=== PATIENT | female | born 1990 | race Caucasian/White ===

== ENCOUNTER → 2021-04-22 07:15 | Outpatient (CLI) | payer OTHER, SELFPAY ==
--- NOTE | ~2021-04-22 | XR_ITS ---
XR ankle LT min 3V DATE: 04/22/2021 07:39 INDICATION: Left ankle injury TECHNIQUE: 4 views COMPARISON: None FINDINGS: There is prominent plantar and mild posterior calcaneal enthesopathy, without any associate d erosive change or periostitis. No fracture or dislocation of the ankle or disruption of the ankle mortise. No periosteal reaction or bone destruction. IMPRESSION: Plantar and posterior calcaneal enthesopathy Reviewed, dictated and finalized at location B. VISION OPERATOR
== END ==
PROVIDERS: PCP Family Medicine; Visit Provider Family Medicine
DX: M77.32 Calcaneal spur, left foot (principal); S99.912A Unspecified injury of left ankle, initial encounter
CPT/HCPCS: 73610

== ENCOUNTER 2021-06-13 07:41 | Outpatient (CLI) | payer OTHER, SELFPAY ==
[2021-06-13 08:03] LABS: Anion Gap 9 mmol/L (8-16); Blood Urea Nitrogen 13 mg/dL (7-17); Calcium 9.1 mg/dL (8.4-10.2); Carbon Dioxide 25 mmol/L (22-30); Chloride 104 mmol/L (98-107); Estimated Glomerular Filt Rate > 60; Glucose 112 mg/dL (65-110); Sodium 138 mmol/L (137-145)
[2021-06-13 08:27] LABS: Vitamin D 25 Hydroxy 24.9 ng/mL
== END 2021-06-13 07:42 | disposition home or self-care (01) ==
PROVIDERS: PCP Family Medicine; Visit Provider Nurse Practitioner Family
DX: R53.83 Other fatigue (principal); L65.9 Nonscarring hair loss, unspecified; F32.A Depression, unspecified; E55.9 Vitamin D deficiency, unspecified
CPT/HCPCS: 36415; 80048; 82306; 84436; 84443

== ENCOUNTER → 2022-04-29 12:16 | Outpatient (CLI) | payer OTHER, SELFPAY ==
--- NOTE | ~2022-04-29 | XR_ITS ---
Left wrist Technique: PA, oblique, lateral, and ulnar deviation views were obtained. Clinical History: Injury Findings: No acute fracture or dislocation is seen. Osseous alignment is anatomic. Joint spaces are p reserved. Soft tissues are unremarkable. Impression: Unremarkable left wrist radiographs. Reviewed, dictated and finalized at location . H RN Impression: Unremarkable left wrist radiographs.
== END ==
PROVIDERS: PCP Nurse Practitioner Family; Visit Provider Nurse Practitioner Family
DX: S69.92XA Unspecified injury of left wrist, hand and finger(s), initial encounter (principal); T14.90XA Injury, unspecified, initial encounter
CPT/HCPCS: 73110

== ENCOUNTER 2024-10-22 12:59 | Emergency (ER) | payer OTHER, SELFPAY ==
--- NOTE | ~2024-10-22 | XR_ITS ---
Left ankle Technique: AP, oblique, and lateral views were obtained. Clinical History: Pain Findings: No acute fracture or dislocation is seen. Osseous alignment is anatomic. Ankle mortise and other visualized joint spaces are preserved. Soft tissues are otherwise unremarkable. Impression: Unremarkable left ankle. Reviewed, dictated and finalized at location . Impression: Unremarkable left ankle.
[2024-10-22 13:18] VITALS: BP 131/82; PULSE 65; RESP 16; TEMP 36.7; O2SAT 99
--- NOTE | 2024-10-22 13:42 | ED_ITS ---
HPI - Extremity Injury (Lower) General Chief Complaint: Extremity Injury, Lower Stated Complaint: Fall Injury/Left Leg and Ankle Time Seen by Provider: 10/22/24 13:43 Source: patient Mode of arrival: ambulatory Limitations: no limitations History of Present Illness HPI Narrative: 34-year-old female presented for complaint of left ankle pain and swelling following injury yesterday. She states she stepped off of a porch, rolled the ankle when she landed on uneven concrete. Says she felt a pop and the pain was so severe she felt dizzy. Since then she has been able to bear weight has not taken anything for pain. The pain has increased throughout today. Denies deformity, bruising, numbness or tingling. Related Data Home Medications ?Medication ?Instructions ?Recorded ?Confirmed ?Last Taken ?Type No Home Medications 10/22/24 10/22/24 Unknown History Allergies Allergy/AdvReac Type Severity Reaction Status Date / Time Latex, Natural Rubber AdvReac Intermediate Rash Verified 10/22/24 13:15 Review of Systems Review of Systems: CONSTITUTIONAL: Denies body aches, fever, chills EYES: Denies visual changes ENT: Denies rhinorrhea, congestion CARDIOVASCULAR: Denies chest pain, palpitations, or edema. RESPIRATORY: Denies cough or dyspnea. SKIN: Denies rash, itching, or wounds. MUSCULOSKELETAL: reports Left ankle pain and swelling NEUROLOGIC: Denies headache, numbness, tingling, or weakness. All systems reviewed & are unremarkable except as noted in HPI and below PMFSH Past Medical History Medical History Adult BMI 39.0-39.9 kg/sq m BMI greater than 40 COVID Surgical History Surgical History History of wisdom tooth extraction (~08/2016) Family History Family History (Updated 06/04/22 @ 11:09 by [place] Lau) Mother Depression Father Hypertension Alcohol abuse Grandparent Breast cancer paternal grandmother Heart disease maternal grandfather Malignant tumor of stomach paternal grandfather Grandparent Lung cancer paternal grandfather Pancreatic cancer paternal grandmother Sibling Depression Other Breast cancer paternal aunts x2 Social History Social History (Updated 06/04/22 @ 11:14 [facility] Smoking status: Former smoker Tobacco type: cigarettes Second hand tobacco smoke exposure: Yes Alcohol intake: never Substance use: never Substance use type: does not use Lack of Transportation: No Lack of Food: Never True Current Housing: I Have Housing Concerned About Future Housing: No Difficulty Paying Gas/Electric Bills: No Difficulty Paying for Meds: No Currently Unemployed: No Education: High School Diploma/GED Difficulty w/ Childcare or Family Care: No Living arrangements: with family Additional living arrangements comments: Lives with her . Occupation/Education: occupation Additional occupation/education comments: [employer] [facility] Gender identity (if verbalized by the patient): Female Sexual Orientation (if Verbalized by the Patient): Lesbian, Kitchen, or Homosexual Spiritual care concerns: No Agree to blood products: Yes Comments At time of signature, I have reviewed and agree with nursing past medical, surgical, social and family history unless otherwise noted. Please see nursing chart for further information. There is no relevant family history pertinent to the presenting complaint Exam Narrative: GENERAL: Well-appearing CHEST: Speaks in full sentences. No respiratory distress. HEART: Regular rate and rhythm. Normal and equal peripheral pulses. EXTREMITIES: Left lateral ankle with mild swelling. slightly decreased range of motion with extension and external rotation due to pain with movement. Foot has normal strength and sensation, No ecchymosis, No point tenderness. No open woun ds, or obvious deformity; pulse palpable and equal bilaterally, skin warm, dry, pink. Capillary refill less than 3 seconds. SKIN: Warm, dry, no rash. NEURO: Alert and oriented x3. PSYCH: Normal mood and affect Course Course Emergency Course: Patient is aware of diagnosis, understands and agrees to treatment plan. Anticipatory guidance given. Patient agrees to follow-up as directed and is aware of reasons to seek care at the emergency department. Portions of this record may have been created with voice recognition software Level of Care: Express Care Visit Vital Signs Vital signs: Vital Signs Temperature 98.1 F 10/22/24 13:18 Pulse Rate 65 10/22/24 13:18 Respiratory Rate 16 10/22/24 13:18 Blood Pressure 131/82 10/22/24 13:18 Pulse Oximetry 99 10/22/24 13:18 Oxygen Delivery Room Air 10/22/24 13:18 Temperature 98.1 F 10/22/24 13:18 Pulse Rate 65 10/22/24 13:18 Respiratory Rate 16 10/22/24 13:18 Blood Pressure 131/82 10/22/24 13:18 Pulse Oximetry 99 10/22/24 13:18 Oxygen Delivery Room Air 10/22/24 13:18 Reviewed MDM - Extremity Injury (Lower) MDM Narrative Medical decision making narrative: Discussed physical exam findings and xray. LIVE applied. Advised supportive measures and signs/symptoms to go to the ER. Pt is appropriate for outpt treatment and f/u. Differential Diagnosis Differential diagnosis: Likely ankle sprain and strain and ankle fracture Imaging Data Radiologist's impression: Patient: Shonda Puckett : 1990 MR#: [id number] Age: 34 Acct:[id number] Loc: [facility] ADM Date: 10/22/24Attending Dr: Left ankle Technique: AP, oblique, and lateral views were obtained. Clinical History: Pain Findings: No acute fracture or dislocation is seen. Osseous alignment is anatomic. Ankle mortise and other visualized joint spaces are preserved. Soft tissues are otherwise unremarkable. Impression: Unremarkable left ankle. Discharge Plan Discharge Clinical Impression: Ankle sprain and strain Patient Disposition: Home Condition: Stable Instructions: Ankle Sprain (ED) Additional Instructions: Rest and elevate the left leg; bear weight as tolerated. No excessive walking or running until symptoms are fully resolved Apply ice 15-20 minute intervals several times a day Keep it wrapped with LIVE or use a soft ankle splint Motrin 800mg every 8 hours, alternate with Tylenol 1000mg every 8 hours as n eeded Follow up with your primary care provider as needed in 1 week Go to the ER for worsening symptoms or concerns Patient Language: Amharic Prescriptions: No Action No Home Medications Follow-up/Referrals: PHYSICIAN,JEWEL FLAT SURFACER [Primary Care Provider] - Time of Disposition: 14:03
== END 2024-10-22 14:12 | disposition home or self-care (01) ==
PROVIDERS: Emergency Provider Nurse Practitioner Family
DX: S93.402A Sprain of unspecified ligament of left ankle, initial encounter (principal); S96.912A Strain of unspecified muscle and tendon at ankle and foot level, left foot, initial encounter; X50.0XXA Overexertion from strenuous movement or load, initial encounter; Z86.16 Personal history of COVID-19; Z87.891 Personal history of nicotine dependence
CPT/HCPCS: 73610; 99213; G0463

== ENCOUNTER 2024-11-09 05:36 | Emergency (ER) | payer OTHER, SELFPAY ==
--- NOTE | ~2024-11-09 | CT_ITS ---
CT of the Abdomen and Pelvis: Indication: Abdominal pain Technique: 2.5 mm axial scans were obtained through the abdomen and pelvis following intravenous adm inistration of 100 cc of Omnipaque 350. Dose reduction technique was used on this scan by utilizing a utomated exposure control and iterative reconstruction technique. The dose-length product (DLP) was 1 181.54 mGy-cm. Findings: Scans through the lung bases are unremarkable. There is diffuse hepatic steatosis. The spleen, pancreas, gallbladder, adrenals and left kidney are w ithin normal limits. There is a 3 mm right UVJ stone with mild right hydroureteronephrosis. No eviden ce of aortic aneurysm. No lymphadenopathy. No bowel obstruction or bowel wall thickening. There is no evidence to suggest acute appendicitis. Images through the pelvis were performed. Urinary bladder otherwise unremarkable. No pelvic mass evid ent. No ascites. Bilateral L5 pars interarticularis defects are present. Impression: 3 mm right UVJ stone, with mild right hydroureteronephrosis. Diffuse hepatic steatosis. Reviewed, dictated and finalized at location . Impression: 3 mm right UVJ stone, with mild right hydroureteronephrosis. Diffuse hepatic steatosis.
--- OUTSIDE RECORDS SUMMARY | 2024-11-09 05:38 | XMS_ITS | Clinical Summary ---
Author Organization [facility] Address [address] [phone] Phone Care Team Providers Care Starch Dumper Name Role Phone Soraya Brantleyelle [facility] Primary Care Pro vider Allergies No known active allergies Medications No known medications Active Problems Problem Noted Date Diagnosed Date Pulsatile tinnitus 01/12/2023 Immunizations Immunization Administration Dates Next Due Varicella Vaccine Live 03/06/1999 Family History Medical History Relation Name Comments Heart Attack Father Anxiety disorder Mother Depression Mother Relation Name Status Comments Father Mother Alive Social History Tobacco Use Types Packs/Day Years Used Date Smoking Tobacco: Former Cigarettes Smokeless Tobacco: Never Tobacco Cessation:Counseling Given: No Alcohol Use Standard Drinks/Week Comments Yes 0 (1 standard drink = 0.6 oz pur e alcohol) Comments No Sex and Gender Information Value Date Recorded Sex Assigned at Not on file Legal Sex 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:33 PM BOOTH OPERATOR Gender Identity Not on file Sexual Orientation Not on file Last Filed Vital Signs Vital Sign Reading Time Taken Comments Blood Pressure 116/84 01/12/2023 4:07 PM CDT Pulse 89 01/12/2023 4:07 PM CDT Temperature 36.6 C (97.8 F) 01/12/2023 4:07 PM CDT Respiratory Rate 12 01/12/2023 4:07 PM CDT Oxygen Saturation 98% 01/12/2023 4:07 PM CDT Inhaled Oxygen Concentration - - Weight 113.9 kg (251 lb) 01/12/2023 4:07 PM CDT Height 163.8 cm (5' 4.5) 01/12/2023 4:07 PM CDT Body Mass Index 42.42 01/12/2023 4:07 PM CDT Plan of Treatment Health Maintenance Due Date Last Done Comments Hepatitis C Virus (HCV) Screening 1990 Human Papillomavirus (HPV) Immunization (1 - 3-dose series) 09/13/2007 Hepatitis B Immunization (1 of 3 - 19+ 3-dose series) 09/13/2011 Pap Smear 2013 Cervical Cancer Screening (CCS) 2022 HPV/Cotest 2022 SARS-COV-2 Immunization ( season) 2024 05/09/2021, 05/28/2020, 05/07/2020 Influenza Immunization (#1) 01/01/202504/02, 02/15/2015 Respiratory Syncytial Virus (RSV) Immunization (Adult) (1 - 1-dose 75+ series) 09/13/2067 DTaP/Tdap/Td Immunization Discontinued 07/24/2015 TdaP Immunization Completed 07/24/2015 Meningococcal Immunization (ACWY) Aged Out No longer eligible based on patient's age to complete this topic Pneumococcal Immunization Combined Aged Out No longer eligible based on patient's age to complete this topic Rotavirus Immunization Aged Out No lo nger eligible based on patient's age to complete this topic Insurance CIG Care Teams Starch Dumper Relationship Specialty Start Date End Date Soraya Brantley PAC [address] [place] [address] PCP - General Physician Threader 01/12/23
--- OUTSIDE RECORDS SUMMARY | 2024-11-09 05:38 | XMS_ITS | Clinical Summary ---
Author Organization [facility] Virtual Care Address [address] [place] [phone] Phone Care Team Providers Care Golf Course Keeper Name Role Phone Unknown, Notinfile Primary Care Provider Unavail able Allergies No known active allergies Medications methylPREDNISol one (Medrol, Jayant,) 4 mg DosepackIndicat ions:Acute effusion of both middle ears follow package directions 1 packet 3 Active fluconazole (DIFLUCAN) 150 mg tabletIndicatio ns:Antibiotic-i nduced yeast infection Take one tab now. Repeat in 7 days if symptoms persist. 2 tablet 3 Active Active Problems No known active problems Social History Tobacco Use Types Packs/Day Years Used Date Smoking Tobacco: Former Cigarettes Personal Safety Answer Date Recorded Getting School Help Needed Not on file 07/17 Comments Unknown Sex and Gender Information Value Date Recorded Sex Assigned at Not on file Legal Sex Female 8:45 AM CDT Gender Identity Female 12/07/2022 4:32 PM CDT Sexual Orientation Lesbian 12/07/2022 4: 32 PM CDT Obstetrics History Last Filed Vital Signs Vital Sign Reading Time Taken Comments Blood Pressure 106/70 12/07/2022 6:06 PM CDT Pulse 80 12/07/2022 6:06 PM CDT Temperature 36.5 C (97.7 F) 12/07/2022 6:06 PM CDT Respiratory Rate 18 12/07/2022 6:06 PM CDT Oxygen Saturation 97% 12/07/2022 6:06 PM CDT Inhaled Oxygen Concentration - - Weight 110.7 kg (244 lb) 12/07/2022 6:06 PM CDT Height 162.6 cm (5' 4) 12/07/2022 6:06 PM CDT Body Mass Index 41.88 12/07/2022 6:06 PM CDT Plan of Treatment Health Maintenance Due Date Last Done Comments Cervical Cancer Screening 1992 Depression Screening 1992 Hepatitis C Screening 1990 Varicella Vaccines (2 of 2 - 2-dose childhood series) 05/29/1999 03/06/1999 DTaP/Tdap/Td Vaccine (1 - Tdap) 09/13/2003 Hepatitis B Screening 2010 Regular Well Visit/Exam 18-64 2010 Covid-19 Vaccine (4 - 2023-2 5 season) 2024 05/09/2021, 05/28/2020, 05/07/2020 Influenza Vaccine (Season Ended) 2025 HPV Vaccines Aged Out No longer eligi ble based on patient's age to complete this topic Pneumococcal vaccine <65 Aged Out No longer eligible based on patient's age to complete this topic Insurance JESSICA ALLEGIANCE Care Teams Golf Course Keeper Relationship Specialty Start Date End Date Unknown, Notinfile PCP - General 11/15/22
--- OUTSIDE RECORDS SUMMARY | 2024-11-09 05:38 | XMS_ITS | Referral Summary ---
Author Organization [facility] Virtual Care Address [address] [place] [phone] Phone Care Team Providers Care Industrial Services Worker Name Role Phone Unknown, Notinfile Primary Care [...] Orientation Lesbian 12/07/2022 4: 32 PM CDT Last Filed Vital Signs Vital Sign Reading [...] 12/07/2022 6:06 PM CDT Plan of Treatment Not on file Insurance JESSICA ALLEGIANCE Care Teams Industrial Services Worker Relationship Specialty Start Date End Date Unknown, Notinfile PCP - General 11/15/22
--- OUTSIDE RECORDS SUMMARY | 2024-11-09 05:39 | XMS_ITS | Data Portability ---
Author Organization [facility] Address [address] [place] [address] Care Team Providers Care Creative Engagement Director Name Role Phone NAOMIE VALDIVIA Primary Care Provider Assessment Encounter Date Assessment Date Assessment LastModified by Organization Details LastModified Time 04/12/2018 04/12/[address] Spear-fabi sultana pt see ENT Not available 04/13/2018 09:19:12 Plan of Treatment Reminders Order Date Submit Date Provider Last Modified By Organization Details Last Modified Time Details Appointments None recorded. Lab DONNIE (antinucle ar antibodies ) screen, serum 2017 018 VENICE CISNEROS, Monico florin Emigd[address], [address] [address], [place], [address], 8 13:11:42 CMP, serum or plasma 2016 017 VENICE CISNEROS, Monico florin Emigdio, [facility] [address], [place], [address], 7 17:10:51 thyroid panel, serum 2016 017 VENICE [facility]ISNEROS, [facility], [address], [place], [address], 7 17:10:52 CBC 2016 017 [facility], [facility], [facility] [address], [place], [address], 7 17:10:51 lipid panel, serum - need LP-IR? insulin resistance 2016 017 VENICE [facility], [address], [address], [place], [address], 7 17:10:52 Referral ENT referral 2017 018 [facility], [address] [facility], [address], [place], [address], 9 09:46:14 Procedures None recorded. Surgeries None recorded. Imaging None recorded. Medication Orders Chantix Starting Month Box 0.5 mg (11)-1 mg (42) tablets in dose pack 2018 019 [facility] #[id number], [address] [place], [place], [id number], 9 15:37:54 phentermin e 37.5 mg capsule [address] [facility] #[id number], [address], [place], [id number], 9 09:18:34 phentermin e 37.5 mg capsule 2016 017 [facility][id number], [address], [place], [id number], 8 15:41:32 phentermin e 37.5 mg capsule 2016 017 [facility] #[id number], [address], [place], [id number], 8 15:41:32 Patient TargetsNo targets recorded. Patient Instructions Encounter Date Encounter Id Patient Instructions Last Modified By Organization Details Last Modified Time 08/04/2016 [id number] breast pain: car e instructions knealma Not available 08/04/2016 16:20:55 RTC in 3 weeks. mpass Not available 08/04/2016 16:19:27 Shonda has decaffinated. She also stopped eating sugar and has lost 30#. She will RTC in 3 weeks for a breast follow-up. If she has the same tenderness, will send her for a breast US. mpass Not available 08/04/2016 16:19:17 07/28/2018 [id number] deciding about using medicines to quit smoking Not available 07/28/2018 15:37:48 Quitting Tobacco : Care Instructions Not available 07/28/2018 15:37:48 When You Want to Lose Weight: Care Instructions Not available 07/28/2018 15:37:48 body mass index: care instructions Not available 07/28/2018 16:25:21 learning about healthy weight Not available 07/28/2018 16:25:21 Reason for Referral ENT Referral for Cervical ly mphadenopathy Referring Physician: Naomie Valdivia, Family Medicine, Encounter Date: 04/12/2018 Results Created Date Observation Date Name Description Value Unit Range Abnormal Flag Note LastModifiedBy Organization Detail LastModifiedTime 08/07/19 17 08/07/2016 CBC WBC 11.7 x10e3 /uL 3.4-10 .8 above high normal Not Available [facility] ([facility]) [address] [place], [address], 08/07/2016 17:10:51 08/07/19 17 08/07/2016 CBC RBC 4.56 x10e6 /uL 3.77-5 .28 Not Available [facility] ([facility]) [address] [facility], [place], [address], 08/07/2016 17:10:51 08/07/19 17 08/07/2016 CBC hemoglobin 13.3 g/dL 11.1-1 5.9 Not Available [facility] ([facility]) [address] [place], [address], 08/07/2016 17:10:51 08/07/19 17 08/07/2016 CBC hematocrit 40.6 % 34.0-4 6.6 Not Available [facility] ([facility]) [address] [facility], [place], [address], 08/07/2016 17:10:51 08/07/19 17 08/07/2016 CBC MCV 89 fL 79-97 Not Available [facility] ([facility]) [address] [facility], [place], [address], 08/07/2016 17:10:51 08/07/19 17 08/07/2016 CBC MCH 29.2 pg 26.6-3 3.0 Not Available [facility] ([facility]) [address] [facility], [place], [address], 08/07/2016 17:10:51 08/07/19 17 08/07/2016 CBC MCHC 32.8 g/dL 31.5-3 5.7 Not Available [facility] ([facility]) [address] [facility], [place], [address], 08/07/2016 17:10:51 08/07/19 17 08/07/2016 CBC RDW 13.3 % 12.3-1 5.4 Not Available [facility] ([facility]) [address] [facility], [place], [address], 08/07/2016 17:10:51 08/07/19 17 08/07/2016 CBC platelets 297 x10e3 /uL 150-37 9 Not Available [facility] ([facility]) [address] [facility], [place], [address], 08/07/2016 17:10:51 08/07/19 17 08/07/2016 CBC neutrophils 57 % Not Avai lable [facility] ([facility]) [address] [facility], [place], [address], 08/07/2016 17:10:51 08/07/19 17 08/07/2016 CBC lymphs 35 % Not Available [facility] ([facility]) [address] [place], [address], 08/07/2016 17:10:51 08/07/19 17 08/07/2016 CBC monocytes 5 % Not Availa ble [facility] ([facility]) [address] [place], [address], 08/07/2016 17:10:51 08/07/19 17 08/07/2016 CBC eos 2 % Not Available [facility] ([facility]) [address] [place], [address], 08/07/2016 17:10:51 08/07/19 17 08/07/2016 CBC basos 1 % Not Available [facility] ([facility]) [address] [place], [address], 08/07/2016 17:10:51 08/07/19 17 08/07/2016 CBC immature cells ELECTRIC VEHICLE ELECTRICIAN Not Available [facility] ([facility]) [address] [place], [address], 08/07/2016 17:10:51 08/07/19 17 08/07/2016 CBC neutrophils (absolute) 6.7 x10e3 /uL 1.4-7. 0 Not Available [facility] ([facility]) [address] [place], [address], 08/07/2016 17:10:51 08/07/19 17 08/07/2016 CBC lymphs (absolute) 4.0 x10e3 /uL 0.7-3. 1 above high normal Not Available [facility] ([facility]) [address] [place], [address], 08/07/2016 17:10:51 08/07/19 17 08/07/2016 CBC monocytes(ab solute) 0.6 x10e3 /uL 0.1-0. 9 Not Available [facility] ([facility]) [address] [place], [address], 08/07/2016 17:10:51 08/07/19 17 08/07/2016 CBC eos (absolute) 0.3 x10e3 /uL 0.0-0. 4 Not Available [facility] ([facility]) [address] [facility], [place], [address], 08/07/2016 17:10:51 08/07/19 17 08/07/2016 CBC baso (absolute) 0.1 x10e3 /uL 0.0-0. 2 Not Available [facility] ([facility]) [address] [facility], [place], [address], 08/07/2016 17:10:51 08/07/19 17 08/07/2016 CBC immature granulocytes 0 % Not Available [facility] ([facility]) [address] [facility], [place], [address], 08/07/2016 17:10:51 08/07/19 17 08/07/2016 CBC immature grans (abs) 0.0 x10e3 /uL 0.0-0. 1 Not Available [facility] ([facility]) [address] [facility], [place], [address], 08/07/2016 17:10:51 08/07/19 17 08/07/2016 CBC NRBC ELECTRIC VEHICLE ELECTRICIAN Not Available [facility] ([facility]) [address] [facility], [place], [address], 08/07/2016 17:10:51 08/07/19 17 08/07/2016 CBC hematology comments: ELECTRIC VEHICLE ELECTRICIAN Not Available [facility] ([facility]) [address] [facility], [place], [address], 08/07/2016 17:10:51 08/07/19 17 08/07/2016 CMP, serum or plasm a glucose, serum 81 mg/dL 65-99 Not Available [facility] ([facility]) [address] [facility], [place], [address], 08/07/2016 17:10:51 08/07/19 17 08/07/2016 CMP, serum or plasm a BUN 10 mg/dL 6-20 Not Available [facility] ([facility]) [address] [facility] [place], [address], 08/07/2016 17:10:51 08/07/19 17 08/07/2016 CMP, serum or plasm a creatinine, serum 0.87 mg/dL 0.57-1 .00 Not Available [facility] ([facility]) [address] [place], [address], 08/07/2016 17:10:51 08/07/19 17 08/07/2016 CMP, serum or plasm a eGFR if nonafricn AM 94 mL/mi n/1.7 3 >59 Not Available [facility] ([facility]) [address] [place], [address], 08/07/2016 17:10:51 08/07/19 17 08/07/2016 CMP, serum or plasm a eGFR if africn AM 109 mL/mi n/1.7 3 >59 Not Available [facility] ([facility]) [address] [place], [address], 08/07/2016 17:10:51 08/07/19 17 08/07/2016 CMP, serum or plasm a BUN/creatini ne ratio 11 9-23 PLE ASE NOTE REFER ENCE INTER ODETTE RAMA E Not Available [facility] ([facility]) [address] [place], [address], 08/07/2016 17:10:51 08/07/19 17 08/07/2016 CMP, serum or plasm a sodium, serum 141 mmol/ L 134-14 4 Not Available [facility] ([facility]) [address] [place], [address], 08/07/2016 17:10:51 08/07/19 17 08/07/2016 CMP, serum or plasm a potassium, serum 4.4 mmol/ L 3.5-5. 2 Not Available [facility] ([facility]) [address] [facility] [place], [address], 08/07/2016 17:10:51 08/07/19 17 08/07/2016 CMP, serum or plasm a chloride, serum 102 mmol/ L 96-106 Not Available [facility] ([facility]) [address] [facility] [place], [address], 08/07/2016 17:10:51 08/07/19 17 08/07/2016 CMP, serum or plasm a carbon dioxide, total 22 mmol/ L 18-29 Not Available [facility] ([facility]) [address] [facility] [place], [address], 08/07/2016 17:10:51 08/07/19 17 08/07/2016 CMP, serum or plasm a calcium, serum 9.1 mg/dL 8.7-10 .2 Not Available [facility] ([facility]) [address] [facility] [place], [address], 08/07/2016 17:10:51 08/07/19 17 08/07/2016 CMP, serum or plasm a protein, total, serum 6.8 g/dL 6.0-8. 5 Not Available [facility] ([facility]) [address] [facility] [place], [address], 08/07/2016 17:10:51 08/07/19 17 08/07/2016 CMP, serum or plasm a albumin, serum 4.1 g/dL 3.5-5. 5 Not Available [facility] ([facility]) [address] [facility] [place], [address], 08/07/2016 17:10:51 08/07/19 17 08/07/2016 CMP, serum or plasm a globulin, total 2.7 g/dL 1.5-4. 5 Not Available [facility] ([facility]) [address] [facility] [place], [address], 08/07/2016 17:10:51 08/07/19 17 08/07/2016 CMP, serum or plasm a A/G ratio 1.5 1.2-2. 2 PLE ASE NOTE REFER ENCE GARY Ferguson Not Available [facility] ([facility]) [address] [facility], [place], [address], 08/07/2016 17:10:51 08/07/19 17 08/07/2016 CMP, serum or plasm a bilirubin, total 0.2 mg/dL 0.0-1. 2 Not Available [facility] ([facility]) [address] [facility] [place], [address], 08/07/2016 17:10:51 08/07/19 17 08/07/2016 CMP, serum or plasm a alkaline phosphatase, S 74 IU/L 39-117 Not Available [facility] ([facility]) [address] [place], [address], 08/07/2016 17:10:51 08/07/19 17 08/07/2016 CMP, serum or plasm a AST (SGOT) 14 IU/L 0-40 Not Available [facility] ([facility]) [address] [place], [address], 08/07/2016 17:10:51 08/07/19 17 08/07/2016 CMP, serum or plasm a ALT (SGPT) 10 IU/L 0-32 Not Available [facility] ([facility]) [address] [place], [address], 08/07/2016 17:10:51 08/07/19 17 08/07/2016 lipid panel , serum cholesterol, total 148 mg/dL 100-19 9 Not Available [facility] ([facility]) [address] [place], [address], 08/07/2016 17:10:52 08/07/19 17 08/07/2016 lipid panel , serum HDL cholesterol 35 mg/dL >39 below low normal Not Available [facility] ([facility]) [address] [place], [address], 08/07/2016 17:10:52 08/07/19 17 08/07/2016 lipid panel , serum LDL/HDL ratio 2.5 ratio _unit s 0.0-3. 2 LDL/H DL RATIO MEN WOMEN 1/2 AVG.R ISK 1.0 1.5 AVG.R ISK 3.6 3.2 2X AVG.R ISK 6.2 5.0 3X AVG.R ISK 8.0 6.1 Not Available [facility] ([facility]) [address] [place], [address], 08/07/2016 17:10:52 08/07/19 17 08/07/2016 lipid panel , serum non-HDL cholesterol 113 mg/dL 0-129 Not Available [facility] ([facility]) [address] [place], [address], 08/07/2016 17:10:52 08/07/19 17 08/07/2016 lipid panel , serum triglyceride s 124 mg/dL 0-149 Not Available [facility] ([facility]) [address] [place], [address], 08/07/2016 17:10:52 08/07/19 17 08/07/2016 lipid panel , serum LDL cholesterol calc 88 mg/dL 0-99 Not Available [facility] ([facility]) [address] [place], [address], 08/07/2016 17:10:52 08/07/19 17 08/07/2016 lipid panel , serum LDL-P 1177 nmol/ L <1000 above high normal LOW < 1000 MODER ATE 1000 - 1299 BORDE RLINE -HIGH 1300 - 1599 HIGH 1600 - 2000 VERY HIGH > 2000 Not Available [facility] ([facility]) [address] [place], [address], 08/07/2016 17:10:52 08/07/19 17 08/07/2016 lipid panel , serum HDL-P (total) 24.9 umol/ L >=30.5 below low normal Not Available [facility] ([facility]) [address] [facility], [place], [address], 08/07/2016 17:10:52 08/07/19 17 08/07/2016 lipid panel , serum small LDL-P 515 nmol/ L <=527 Not Available [facility] ([facility]) [address] [facility], [place], [address], 08/07/2016 17:10:52 08/07/19 17 08/07/2016 lipid panel , serum LDL size 21.1 nm >20.5 ----- ----- ----- ----- ----- ----- ----- ----- ----- ----- ----- --- INTER PRETA TIVE INFOR JEAN-CLAUDE N PARTI JONNIE NAWAF NTRAT ION AND SIZE <--LO WER CVD RISK HIGHE R CVD RISK- -> LDL AND HDL PARTI CLES PERCE NTILE IN REFER ENCE POPUL ATION HDL-P (TOTA L) HIGH 75TH 50TH 25TH LOW >34.9 34.9 30.5 26.7 <26.7 SMALL LDL-P LOW 25TH 50TH 75TH HIGH <117 117 527 839 >839 LDL SIZE <-LAR GE (CHAVO ELISA A)-> <-SMA LL (CHAVO ELISA B)-> 23.0 20.6 20.5 19.0 ----- ----- ----- ----- ----- ----- ----- ----- ----- ----- ----- --- SMALL LDL-P AND LDL SIZE ARE ASSOC IATED WITH CVD RISK, BUT NOT AFTER LDL-P IS TAKEN INTO ACCOU NT. THESE ASSAY S WERE DEVEL OPED AND THEIR PERFO RMANC E JESSICA CTERI STICS DETER MINED BY LIPOS JAYA Ferguson. THESE ASSAY S HAVE NOT BEEN CLEAR ED BY THE US FOOD AND DRUG ADMIN ISTRA TION. THE CLINI LILI UTILI TY OF THESE LABOR ATORY VALUE S HAVE NOT BEEN FULLY ESTAB JOELLEN Diallo. Not Available [facility] ([facility]) [address] [facility], [place], [address], 08/07/2016 17:10:52 08/07/19 17 08/07/2016 lipid panel , serum LP-IR score 67 <=45 above high normal INSUL IN RESIS TANCE MARKE R <--IN SULIN SENSI TIVE INSUL IN RESIS TANT- -> PERCE NTILE IN REFER ENCE POPUL ATION INSUL IN RESIS TANCE SCORE LP-IR SCORE LOW 25TH 50TH 75TH HIGH <27 27 45 63 >63 LP-IR SCORE IS INACC URATE IF PATIE NT IS NON-F ASTIN G. THE LP-IR SCORE IS A LABOR ATORY DEVEL OPED INDEX THAT HAS BEEN ASSOC IATED WITH INSUL IN RESIS TANCE AND DIABE LADARIUS RISK AND SHOUL D BE USED ONE COMPO NENT OF A PHYSI MAXIME' S CLINI LILI ASSES SMENT . THE LP-IR SCORE LISTE D ABOVE HAS NOT BEEN CLEAR ED BY THE US FOOD AND DRUG ADMIN ISTRA TION. Not Available [facility] ([facility]) [address] [facility], [place], [address], 08/07/2016 17:10:52 08/07/19 17 08/07/2016 lipid panel , serum nmr pdf image . Not Available [facility] ([facility]) [address] [facility], [place], [address], 08/07/2016 17:10:52 08/07/1908/07/2016 lipid panel , serum comment: ELECTRIC VEHICLE ELECTRICIAN Not Available [facility] ([facility]) [address] [facility], [place], [address], 08/07/2016 17:10:52 08/07/1908/07/2016 thyro id panel , serum TSH 1.780 uIU/m L 0.450- 4.500 Not Available [facility] ([facility]) [address] [facility], [place], [address], 08/07/2016 17:10:52 08/07/19 17 08/07/2016 thyro id panel , serum thyroxine (T4) 7.8 ug/dL 4.5-12 .0 Not Available [facility] ([facility]) [address] [place], [address], 08/07/2016 17:10:52 08/07/19 17 08/07/2016 thyro id panel , serum T3 uptake 28 % 24-39 Not Available [facility] ([facility]) [address] [place], [address], 08/07/2016 17:10:52 08/07/19 17 08/07/2016 thyro id panel , serum free thyroxine index 2.2 1.2-4. 9 Not Available [facility] ([facility]) [address] [place] [address], [address], 08/07/2016 17:10:52 04/12/20 18 04/13/2018 DONNIE (anti nucle ar antib odies ) scree n, serum DONNIE direct Negati ve negati ve Not Available [facility] ([facility]) [address] [place] [address], [address], 04/13/2018 13:11:42 Result Notes None recorded. Problems Name Problem SNOMED Code Status Onset Date Resolution Date Notes Provider Name and Address Organization Details Recorded Time Axillary hidradenitis suppurativa 189203182 Active LEE ANN [place], [place] - [facility] 6 15:22:24 Dysmenorrhea 180174419 LEE ANN [place] [facility] 6 15:22:24 Abdominal pain 76962922 LEE [place] [facility] 6 15:22:24 Constipation 51131719 LEE ANN [place] [facility] 6 15:22:24 Urinary tract infectious disease 41705216 LEE ANN [place] [facility] 6 15:22:24 Uncomplicated umbilical hernia Active LEE ANN [place] [facility] 6 15:22:24 Cyst of ovary 72660649 LEE ANN [place] [facility] 6 15:22:24 Candidal vulvovaginitis 63569356 LEE ANN [place] [facility] 6 15:22:24 Bacterial vaginosis 988063772 LEE ANN [place] [facility] 6 15:22:24 Candidiasis 61554486 LEE ANN [place] [facility] 6 15:22:24 Candidiasis of vagina 03426731 LEE ANN [place] [facility] 6 15:22:24 Sprain of ankle 19255009 LEE [place] [facility] 6 15:22:24 Hidradenitis suppurativa 58701606 Active LEE ANN [place] [facility] 6 15:22:24 Obesity 658767369 Active AMBROCIO Granda Attn: Dulce Maria hoffman,[address] [place], [address], [place] - [facility] 6 15:38:16 Palpitations 33909682 LEE ANN [place] [facility] 6 15:22:24 Weight increased 485832072 Active LEE ANN [place] [facility] 6 15:22:24 Moderate depression 741046904 LEE ANN [place] [facility] 6 15:22:24 Tobacco dependence syndrome 43244647 Active LEE [place] [facility] 6 15:22:24 Pain of breast 02321072 Active 2016 Leida Sergio eleni, [place] [facility] 7 15:55:57 Notes:Pt. maybe wants to suzy nge b/c. Heavy clotting with this control Problem Notes None recorded. Procedures Surgical History Date Name Laterality Status Provider Name and Address Organization Details Recorded Time 10/12/2011 Date of Last Pap Smear completed Angie Santiago [place] - [facility] 04/16/2014 16:26:28 Imaging Results None recorded. Procedure Notes None recorded. Medical Equipment None Reported. Allergies No known drug allergies Medications Name Sig Start Date Stop Date Status Note LastModified by Organization Details LastModified Time amoxicillin 500 mg capsule 04/12 completed Not Available Not Available Not Available metformin 500 mg tablet Take 1 tablet twice a day by oral route. 08/04 completed Not Available Not Available Not Available ibuprofen 800 mg tablet Take 1 tablet every 8 hours by oral route as needed. 04/12 completed Not Available Not Available Not Available tizanidine 4 mg tablet active Not Available Not Available Not Available fluconazole 150 mg tablet Take 1 tablet by oral route as directed for 1 day. active Not Available Not Available No t Available prednisone 20 mg tablet 04/12 completed Not Available Not Available Not Available Doc-Q-Lace 100 mg capsule Take 1 capsule every day by oral route. active Not Available Not Available No t Available terconazole 0.8 % vaginal cream Insert 1 applicato rful every day by vaginal route for 3 days. active Not Available Not Available No t Available phentermine 15 mg capsule Take 1 capsule every day by oral route. 05/21 completed Not Available Not Available Not Available penicillin V potassium 500 mg tablet active Not Available Not Available Not Available metronidazo le 500 mg tablet Take 1 tablet twice a day by oral route for 7 days. active Not Available Not Available No t Available sulfamethox azole 800 mg-trimetho prim 160 mg tablet Take 1 tablet every 12 hours by oral route for 7 days. 2014 active Not Available Not Available Not Avai lable tramadol 50 mg tablet active Not Available Not Available No t Available phentermine 30 mg capsule Take 1 capsule every day by oral route. 04/12 completed Not Available Not Available Not Available ketorolac 10 mg tablet 04/12 completed Not Available Not Available Not Available dicyclomine 20 mg tablet Take 1 tablet 4 times a day by oral route as needed. active Not Available Not Available No t Available hydrocodone 7.5 mg-acetamin ophen 325 mg tablet 04/12 completed Not Available Not Available Not Available ranitidine 300 mg capsule Take 1 capsule every day by oral route. active Not Available Not Available No t Available ondansetron 4 mg disintegrat ing tablet active Not Available Not Available N ot Available fluticasone propionate 50 mcg/actuati on nasal spray,suspe nsion [place] 1 spray every day by intranasa l route. 04/12 completed Not Available Not Available Not Available phentermine 37.5 mg capsule TAKE ONE CAPSULE BY MOUTH EVERY DAY active Not Available Not Available No t Available naproxen 500 mg tablet Take 1 tablet twice a day by oral route as needed. 08/04 completed Not Available Not Available Not Available amoxicillin 875 mg-potassiu m clavulanate 125 mg tablet 04/12 completed Not Available Not Available Not Available Ventolin HFA 90 mcg/actuati on aerosol inhaler 04/12 completed Not Available Not Available Not Available Mononessa (28) 0.25 mg-35 mcg tablet Take 1 tablet every day by oral route. 2013 active Not Available Not Available Not Avai lable nitrofurant oin monohydrate /macrocryst als 100 mg capsule Take 1 capsule every 12 hours by oral route for 5 days. active Not Available Not Available No t Available Chantix Starting Month Box 0.5 mg (11)-1 mg (42) tablets in dose pack take as directed per package instructi ons 2018 active Not Available Not Available Not Avai lable Vitals Date Recorded Body height Body weight Body mass index (BMI) Heart rate Respiratory rate Systolic And Diastolic Provider Name and Address Organization Details Last Updated DateTime 7 162.56 cm 27306.6 2 g 35.5 kg/m2 60 /min 12 /min 110/74 mm[Hg] Tila Garcia [place] - [facility] 7 14:29:51 Date Recorded Body height Body mass index (BMI) Body weight Oxygen saturation Oxygen saturation in Arterial blood by Pulse oximetry Heart rate Respiratory rate Systolic And Diastolic Provider Name and Address Organization Details Last Updated DateTime 9 162.56 cm 36.8 kg/m2 05620.5 7 g 99 % 99 % 78 /min 16 /min 120/70 mm[Hg] Tila Garcia [place] - [facility] 9 15:30:10 Date Recorded Body weight Body mass index (BMI) Systolic And Diastolic Provider Name and Address Organization Details Last Updated DateTime 08/04/2016 75726.47 g 34.3 kg/m2 128/76 mm[Hg] Leida Wattsmons [facility] 08/04/2016 15:55:20 Date Recorded Body height Provider Name an d Address Organization Details Last Updated DateTime 08/04/2016 162.56 cm Liaz Toth MA [facility] 08/04/2016 15:52:42 Date Recorded Body height Body weight Body mass index (BMI) Heart rate Respiratory rate Systolic And Diastolic Provider Name and Address Organization Details Last Updated DateTime 7 162.56 cm 08992.8 g 33.9 kg/m2 70 /min 20 /min 128/74 mm[Hg] nAa Mclaughlin MA [facility] 7 15:15:48 Date Recorded Body height Body mass index (BMI) Body weight Oxygen saturation Oxygen saturation in Arterial blood by Pulse oximetry Heart rate Respiratory rate Systolic And Diastolic Provider Name and Address Organization Details Last Updated DateTime 8 162.56 cm 37 kg/m2 54726.1 6 g 99 % 99 % 63 /min 12 /min 110/72 mm[Hg] Tila Garcia MA [facility] 8 15:40:31 Social History Question Answer Notes LastModified by Organizat ion Details LastModified Time Tobacco Smoking Status Current Every Day Smoker Liza knowles [facility] 11/27/2014 14:42:43 Do You Have An Advance Directive? No Information not available 04/19/2014 What Is Your Level Of Caffeine Consumption? None Information not available 04/19/2014 What Type Of Diet Are You Following? REGULAR Information not available 10/08/2015 Which Illicit Or Recreational Drugs Have You Used? None Information not available 10/08/2015 Education 12 Information no t available 10/08/2015 Are There Any Guns Present In Your Home? No Information not available 10/08/2015 Hard Of Hearing Or Deaf In One Or Both Ears? No Information not available 04/19/2014 Legally Blind In One Or Both Eyes? No Information no t available 04/19/2014 Marital Status Domestic Partner Information not available 10/08/2015 What Was The Date Of Your Most Recent Tobacco Screening? 07/28/2018 Information not available 11/24/2018 How Many Children Do You Have? 0 [email or web address] Information not available 04/16/2014 Performs Monthly Self-breast Exam? Yes Information no t available 04/19/2014 Do You Use Protection During Sex? No [email or web address] Information not available 04/16/2014 What Is Your Relationship Status? Single [email or web address] Information not available 04/16/2014 Seat Belts Used Routinely Yes Information not available 04/19/2014 Are You Sexually Active? Yes [email or web address] Information not available 04/16/2014 Smoke Alarm In Home Yes Information not available 04/19/2014 How Much Tobacco Do You Smoke? 0.25 PPD [email or web address] Information not available 08/04/2016 Do You Use Sunscreen Routinely? Yes Information not available 04/19/2014 Sex: Unknown Functional Status Question Answer Note LastModified by Organizat ion Details LastModified Time What is your level of alcohol consumption? Occasional Information not available 04/19/2014 What is your exercise level? Occasional Information not available 10/08/2015 Mental Status None recorded. Family History Relationship Description Onset Age of this Age Resolved Age Notes LastModified by Organization Details LastModified Time Father Hyperlipidem ia [email or web address] Not available 2015 15:22:25 Mother Heart disease Not available 2015 15:22:25 Unspecified Relation Heart disease Matern al Grandp michi Not available 12/19/2015 15:22:25 Unspecified Relation History of hypertension Patern al and Matern al Grandp michi Not available 12/19/2015 15:22:25 Unspecified Relation Malignant tumor of breast Patern al Grandp michi Not available 12/19/2015 15:22:25 Unspecified Relation Diabetes mellitus Patern al and Matern al Grandp michi Not available 12/19/2015 15:22:25 Unspecified Relation Hyperlipidem ia Patern al and Matern al Gaby [email or web address] Not available 12/19/2015 15:22:25 Medical History Condition Response Heart Problems N Other N Breast Cancer N Kidney or Bladder Problems N Thyroid Problems N Lung Disease N Depression N GI Problems N Acne N Breast Problem N Eating Disorder N Anemia N Anesthesia Complications N Headaches/Migraines N Anxiety Disorder N Ovarian Cancer N Diabetes N Blood Transfusions N Arthritis N Infertility N Polyps N Acid Reflux (GERD) N Cancer N Stroke N Abuse/Domestic Violence N Asthma N Endometriosis N High Cholesterol N Hepatitis N Heart Disease N Fibromyalgia N Pre-Eclampsia N Hypertension N Osteoporosis N Kidney Disease N Gynecological History Statement/Question Response Abnormal Pap N Flow Heavy STIs/STDs N Duration of Flow (days) 3 Age at Menarche 14 Current Control Method None Frequency of Cycle (Q days) 28 Sexually Active? Y Menses Monthly Y Date of Last Pap Smear 10/12/2011 Sexual Problems? N LMP Approximate Obstetrics History GPAL:G 0 P 0 0 0 0 Immunizations Vaccine Type Date Status Note Provider Nam e and Address Organization Details Recorded Time Tdap 6 completed Not Available [facility] 06/03/2019 02:11:36 TST, unspecified formulation 6 completed Not Available [facility] 06/03/2019 02:11:36 Influenza, split virus, trivalent, preservative 5 completed Not Available [facility] 05/20/2019 02:44:17 Past Encounters Encounter ID Performer Location Encounter Start Date Encounter Closed Date Diagnosis/Indication Diagnosis SNOMED-CT Code Diagnosis ICD10 Code Diagnosis Note [id number] MD Christine Montero ([facility] 122) [address] [place] [address] 04/17/2014 09:48:41 04/17/2014 12:49:09 Gynecologic examination 46054654 [id number] MD Christine Berry ([facility] [address]) [address] [place] [address] 04/19/2014 10:31:50 04/19/2014 18:54:09 Palpitations 67918993 Weight increased 028609777 [id number] MD Christine Berry ([facility] [address]) [address] [place] [address] 06/14/2014 14:28:33 06/18/2014 15:57:04 Axillary hidradenitis suppurativa 759919600 [id number] MD Christine Berry ([facility] 205) [address] [place] [address] 10/25/2014 14:19:46 10/25/2014 17:26:49 Abdominal pain 61015759 Constipation 72351002 [id number] MD Christine Berry ([facility] 205) [address] [place] [address] 11/01/2014 13:55:25 11/01/2014 15:51:37 Abdominal pain 08743225 ? Colitis, US negative Urinary tr act infectious disease 05386572 [id number] Arlette Barth [facility] Christine Means ([facility] 122) [address] [place] [address] 11/27/2014 14:21:43 11/27/2014 15:27:36 Cyst of ovary 29725833 Candidal vulvovaginitis 77166856 Vaginal discharge 919805601 [id number] MD Christine Berry ([place] [address]) [address] [place] [address] 02/15/2015 15:25:10 02/18/2015 18:17:45 Sprain of ankle 96767491 S93.412A Administra tion of influenza vaccine 46963202 Z23 Hidradenit is suppurativa 35753936 L73.2 [id number] MD Christine Berry ([place] [address]) 2 [facility] [place] [address] 07/15/2015 14:17:52 07/15/2015 16:58:36 Obesity 152222050 E66.9 discussed her weight and intake along with exercise-s he is aware at this time that getting her diet under control would be important- she is to check into weight watchers through her insurance if after she has managed her diet and exercise and not lost weight will consider medication at that time. [id number] AMBROCIO Granda ([facility] 205) [address] [place] [address] 08/20/2015 11:23:32 08/23/2015 09:57:23 Obesity 330520219 E66.[address] on Phentermin e due to history of palpitatio ns-Lipid cascade notes LP-IR elevated-d iscussed with patient and will place on Metformin [id number] AMBROCIO Granda ([facility] 205) 2 [facility] SUMAYA [place] [address] 10/08/2015 09:04:37 10/08/2015 12:09:05 Obesity 174470563 E66.9 approval for medication from cardiology given Moderate depression 3104 09869 F32.1 discussed with her, her depression and she feels that at this time she is overwhelme d with school, finding a job and also notes loss of grandparen t a year ago and feels her moods recently have been worse-she does not want to start medication at this time but is willing to consider counseling -with the understand ing that any worsening she is to come in and be seen-she voices understand ing and 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 to herself or others Tobacco de pendence syndrome 55541916 F17.290 Depression screening 171 448866 Z13.89 [id number] AMBROCIO Granda ([place] [address]) 2 [facility] [place] [address] 11/12/2015 14:46:11 11/13/2015 11:06:14 Obesity 928257377 E66.9 [id number] AMBROCIO Granda ([place] [address]) [address] [place] [address] 12/19/2015 15:03:16 12/19/2015 16:22:16 Obesity 954754628 E66.9 [id number] MD Christine White ([place] [address]) 2 [facility] [place] [address] 03/10/2016 14:52:17 03/11/2016 11:32:10 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 Counseled on ocular migraine and testing-Na proxen as needed for pain, continue with Opthamolog y for f/u [id number] MD Christine White ([place] [address]) 2 [facility] [place] [address] 05/12/2016 15:52:17 05/13/2016 13:22:56 Talipes planus 17223048 M21.40 M79.673 Counseled on foot pain and medication -x-ray bilateral feet-once results back will refer to orthopedic s for evaluation -advised to continue wearing inserts and orthotic shoes [id number] MD Christine White ([facility] 205) [address] [facility] [place] [address] 05/21/2016 15:25:23 05/22/2016 09:38:07 Obesity 388685117 E66.9 Counseled on obesity and medication -continue healthy diet and exercise. Advised to monitor blood pressures due to side effect of medication -call office if >140/90 consistent ly. [id number] MD Christine White ([facility] 205) 2 [facility] [place] [address] 06/30/2016 14:22:27 07/01/2016 12:17:16 Obesity 204959967 E66.9 Counseled on obesity and medication (will increase phentermin e)-continu e healthy diet and exercise. Advised to monitor blood pressures due to side effect of medication -call office if >140/90 consistent ly. [id number] EVERETT Subramanian- Christine Means ([facility] 122) 2 [facility] [place] [address] 08/04/2016 15:51:35 08/05/2016 08:52:24 Pain of breast 92188666 N64.4 [id number] MD Christine White ([facility] 205) 2 [facility] [place] [address] 08/06/2016 15:08:17 08/10/2016 09:16:27 Obesity 875715946 E66.9 Counseled on obesity and medication -will continue medication for another month-cont inue healthy diet (increase protein and decrease carbs) and exercise. Advised to monitor blood pressures due to side effect of medication -call office if >140/90 consistent ly. Will do blood work [id number] MD Christine White 14 IM 4 [facility] [address] [place] [address] 04/12/2018 15:26:57 04/14/2018 12:42:18 C-reactive protein outside reference range 942850102 R79.82 Cervical lymphadenopathy 530868181 R59.0 [id number] MD Christine White 14 [address] [facility] [place] [address] 07/28/2018 15:08:17 07/28/2018 16:29:53 Obesity 031229562 E66.9 Counseled on obesity and medication -will restart medication -continue healthy diet (increase protein and decrease carbs) and exercise. Advised to monitor blood pressures due to side effect of medication -call office if >140/90 consistent ly. Tobacco de pendence syndrome 85881860 F17.290 Body mass index 30+ - obesity 361696513 Z68.36 Health Concerns Section Related Observation LastModified by Organization Detai ls LastModified Time None Recorded Concern Status LastModified by Organization Details LastModified Time None Recorded Advance Directives Directive N: Payers Insurance Date Sequence Insurance Name Policy Number Policy Barbour Covered Member ID Barbour Member ID Guarantor Name 07/25/2018 1 [facility] [id number] Hina Puckett [id number] Shonda Puckett 04/04/2018 1 [facility] [id number] Shonda Puckett 04/13/2018 1 [place] [facility] Shonda Olsen [id number] Shonda Puckett 04/13/2018 1 [place] [facility] Shonda Olsen [id number] Shonda Puckett 04/13/2018 1 [facility] (MEDICAID HMO) Shonda Olsen [id number] Shonda Puckett 06/13/2014 1 *SELF PAY* Petr Puckett 04/13/2018 1 [facility] (MEDICAID HMO) Shonda Olsen [id number] Shonda Puckett Notes Date Note Type Note Provider Name and Address Organization Details Recorded Time 06/30/2016 text/html ObesityReported bypatient.Diagnosis Summary:age at start of weight gain 20 Context:no inhaled steroids; no oral steroids Associated Symptoms:no depression; no chronic illness; no Prader-Willi Syndrome; no hypothyroidism Co-morbidities:overwe ight/obese;insulin resistance Lifestyle changes:few constitutional symptoms related to diagnosis; no changes in living situation; motivated to continue lifestyle changes; losing weight; exercising more Nutrition:eats mostly healthy diet; counting and restricting calories; restricting concentrated sugars Physical Activity:reported frequency of moderate level of physical activity per week: 2-4 days Medication Education:understands potential side effects; understands administration; understands role of diet as primary therapyNotes:has lost 9 pounds since last visit-exercising more and eating better, tolerating medication well AMBROCIO Granda Attn: [address] [place], [address], [facility] 07/01/2016 09:02:21 08/04/2016 text/html Breast PainRepor sandhya bypatient.[facility] Onset/Timin-7 days Duration:constant Quality:dull; throbbing; aching; generalized Severity:moderate Context:menstruating; fibrocystic breasts; performs breast self examination; current estrogen use; family history of breast cancer; MG at 47y, MAunt at 30y Modifying Factors:touch; pressure Associated Symptoms:no fever; no chills; no skin redness; no nipple discharge; no sore nipples; breasts not full, sore, unable to express milk; no breast swelling; no arm pain; no arm swelling; no chest pain; no malaise; no breast lump JUAN Subramanian Attn: [address] [place], [address], [facility] 08/04/2016 16:19:51 08/06/2016 text/html ObesityReported bypatient.Diagnosis Summary:age at start of weight gain 20 Context:no inhaled steroids; no oral steroids Associated Symptoms:no depression; no chronic illness; no Prader-Willi Syndrome; no hypothyroidism Co-morbidities:overwe ight/obese;insulin resistance Lifestyle changes:few constitutional symptoms related to diagnosis; no changes in living situation; motivated to continue lifestyle changes; losing weight; exercising more Nutrition:eats mostly healthy diet; counting and restricting calories; restricting concentrated sugars Physical Activity:reported frequency of moderate level of physical activity per week: 2-4 days Medication Education:understands potential side effects; understands administration; understands role of diet as primary therapyNotes:has lost 3 pounds since last visit, she feels that she has not been able to get past 197-exercising more and eating better, tolerating medication well AMBROCIO Granda Attn: [address] [facility], [place], [address], [facility] 08/07/2016 09:39:38 04/12/2018 text/html FatigueReported bypatient.Severity:no rmal sleep patterns; normal exercise habits; normal activity; improving Timing:worse Context:symptoms improve on weekends/vacation; no problems/stress at work or home Modifying Factors:no new stressors in life; taking vitamins Associated Symptoms:no drug/alcohol withdrawal; no depression; no anxiety; no sleep disturbances; no snoring; periods of not breathing (apnea) have not been observed; no recent change in weightNotes:has noted hives on and off for 2-3 months, fatigue started at that time as well as swollen lymph node to left jaw line and 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) was tested for strep which was negative AMBROCIO Granda Attn: [address] [facility], [place], [address], [facility] 04/13/2018 09:19:27 07/28/2018 text/html ObesityReported bypatient.Context:no inhaled steroids; no oral steroids Associated Symptoms:no depression; no chronic illness; no Prader-Willi Syndrome; no hypothyroidism Co-morbidities:overwe ight/obese Lifestyle changes:few constitutional symptoms related to diagnosis; no changes in living situation; motivated to continue lifestyle changes; exercising more;not losing weight Nutrition:poor compliance with diet Medication Education:understands potential side effects; understands administration; understands role of diet as primary therapyNotes:has been on Phentermine in the past did well with it here for smoking cessation AMBROCIO Granda Attn: [address] [facility], [place], [address], [facility] 07/28/2018 16:25:48 OBGyn Episode No OBEpisode recorded.
--- OUTSIDE RECORDS SUMMARY | 2024-11-09 05:39 | XMS_ITS | Patient Health Record ---
Author Organization [facility] Address [address] [place], [place] [id number] Care Team Providers Care Supervisor Photostat Name Role Phone HUGO AGUILAR Unavailable [phone] Belinda Finney Unavailable Unavailable Reason For Referral No Information Plan Of Treatment No Information Insurance Providers Payer Name Payer Address Payer Phone Subscriber Number Group Number Insured Name Patient Relationship to Insured Coverage Start Date Coverage End Date [employer] [address] [place], [place] [phone] [id number] JUDY ANDREW Spouse - patient is the spouse of the insured
--- OUTSIDE RECORDS SUMMARY | 2024-11-09 05:39 | XMS_ITS | Clinical Summary ---
Author Organization [facility] Address [address] [place] [address] Care Team Providers Care Administrative Receptionist Name Role Phone Unavailable Primary Care Provider Unavailabl e Source Comments [facility],non-owned Affiliates and Associated Physician Practices is amultiple site organization consisting of ambulatory clinics and hospital sitesin [place], [place], [place] and [place]. This disclosure is being madepursuant to the Care Everywhere program and may not contain all information available regarding this patient. Last updated 18.[facility] Allergies No known active allergies Medications * Be aware that medications may not be up to date on this document. Alwaysverify current medications with the patient. albuterol HFA (PROVENTIL;DARIEN ZINA;PROAIR) 108 (90 BASE) MCG/ACT inhalerIndicatio ns:Acute upper respiratory infection Inhale 2 Puffs by mouth every 6 hours as needed for Shortness of Breath, Wheezing or Cough 1 Inhaler 7 Active Additional Information Patient not taking.Reported on 12/17/2022 Active Problems No known active problems Immunizations Immunization Administration Dates Next Due Covid [employer] primary monovalent 12+ yr 0.3mL Pur ple cap 05/22/2020 VARICELLA 03/06/1999 Social History Tobacco Use Types Packs/Day Years Used Date Smoking Tobacco: Former Cigarettes Q uit: 06/03/2022 Smokeless Tobacco: Never Tobacco Cessation:Counseling Given: Not Answered Alcohol Use Standard Drinks/Week Comments Yes 0 (1 standard drink = 0.6 oz pur e alcohol) occ Comments Unknown Sex and Gender Information Value Date Recorded Sex Assigned at Not on file 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 Gender Identity Not on file Sexual Orientation Not on file Last Filed Vital Signs Vital Sign Reading Time Taken Comments Blood Pressure 110/76 12/17/2022 10:59 AM CDT Pulse 61 12/17/2022 10:59 AM CDT Temperature 37.1 C (98.7 F) 08/25/2016 2:31 PM CDT Respiratory Rate 16 08/25/2016 2:31 PM CDT Oxygen Saturation 97% 08/25/2016 2:31 PM CDT Inhaled Oxygen Concentration - - Weight 114.1 kg (251 lb 9.6 oz) 023 10:59 AM CDT Height 163.8 cm (5' 4.5) 12/17/2022 10 :59 AM CDT Body Mass Index 42.52 12/17/2022 10:59 AM CDT Plan of Treatment Health Maintenance Due Date Last Done Comments HIV SCREENING 09/13/2007 HEPATITIS C SCREENING 09/08/2010 DTAP/TDAP/TD VACCINES (1 - Tdap) 09/13/2011 HEPATITIS B VACCINE (1 of 3 - 19+ 3-dose series) 09/13/2011 PAP SMEAR 2013 HPV VACCINE (1 - 3-dose SCDM series) 09/13/2019 COVID-19 VACCINE ( season) 2024 05/09/2021, 05/28/2020, 05/22/2020, Additional history exists DEPRESSION SCREENING 05/03/2024 INFLUENZA VACCINE (#1) 2025 ZOSTER VACCINE (1 of 2) 2042 HIB VACCINE Aged Out No longer eligi ble based on patient's age to complete this topic MENINGOCOCCAL (Group B) VACCINE SHARED DECISION-MAKING Aged Out No longer eligible based on patient's age to complete this topic MENINGOCOCCAL GROUPS A/C/Y/W VACCINE Aged Out No longer eligible based on patient's age to complete this topic PNEUMOCOCCAL VACCINE Aged Out No long er eligible based on patient's age to complete this topic Insurance [employer]
[2024-11-09 05:46] VITALS: BP 146/99; PULSE 76; RESP 13; O2SAT 99
[2024-11-09 06:05] LABS: Hematocrit 43.3 % (37.0-47.0); Hemoglobin 14.0 g/dL (12.0-15.0); Immature Granulocyte Percent A 0.5 % (0-0.5); Lymphocytes Absolute Auto 4.28 K/mm3 (0.9-3.2); Mean Corpuscular HGB Conc 32.3 g/dl (32-36); Mean Corpuscular Hemoglobin 28.3 pg (26-34); Mean Corpuscular Volume 87.5 fl (80-100); Nucleated Red Blood Cells Absolute Auto 0.000 K/mm3 (0.0-0.012); Nucleated Red Blood Cells Perc 0.0 % (0.0-0.2); Platelet Count Result 318 k/mm3 (150-375); Red Blood Count 4.95 M/mm3 (4.2-5.4); White Blood Count 13.1 K/mm3 (4.5-10.0)
--- OUTSIDE RECORDS SUMMARY | 2024-11-09 06:07 | XMS_ITS | Clinical Summary ---
Author Organization [facility] Address [address] [place] [address] Care Team Providers Care Rubber Goods Inspector Name Role Phone Unavailable Primary Care Provider Unavailabl e Source Comments [facility],non-owned Affiliates and Associated Physician Practices is amultiple site organization consisting of ambulatory clinics and hospital sitesin [place], [place], [place] and [place]. This disclosure is being madepursuant to the Care Everywhere program and may not contain all information available regarding this patient. 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
--- OUTSIDE RECORDS SUMMARY | 2024-11-09 06:07 | XMS_ITS | Clinical Summary ---
Author Organization [facility] Address [address] [place] [phone] Phone Care Team Providers Care Water Tender Name Role Phone Unknown, Notinfile Primary Care [...] this topic Insurance JESSICA ALLEGIANCE Care Teams Water Tender Relationship Specialty Start Date End Date Unknown, Notinfile PCP - General 11/15/22
--- OUTSIDE RECORDS SUMMARY | 2024-11-09 06:07 | XMS_ITS | Referral Summary ---
Author Organization [facility] Address [address] [place] [phone] Phone Care Team Providers Care Powder Loader Name Role Phone Unknown, Notinfile Primary Care [...] on file Insurance JESSICA ALLEGIANCE Care Teams Powder Loader Relationship Specialty Start Date End Date Unknown, Notinfile PCP - General 11/15/22
[2024-11-09 06:18] LABS: Alanine Aminotransferase 32 U/L (6-35); Albumin Level 4.1 g/dL (3.5-5.1); Alkaline Phosphatase 82 U/L (38-126); Anion Gap 13 mmol/L (4-12); Aspartate Amino Transferase 31 U/L (14-36); Bilirubin,Total 0.5 mg/dL (0.2-1.3); Blood Urea Nitrogen 15 mg/dL (7-17); Calcium 9.1 mg/dL (8.4-10.2); Carbon Dioxide 20 mmol/L (22-30); Chloride 105 mmol/L (98-107); Estimated CRCL calculation 82 ml/min; Estimated Glomerular Filt Rate 59; Glucose 133 mg/dL (65-110); Lipase 101 U/L (23-300); Magnesium 2.0 mg/dL (1.6-2.3); Potassium 3.4 mmol/L (3.4-5.0); Sodium 138 mmol/L (137-145); Total Protein 7.7 g/dL (6.3-8.2)
[2024-11-09 06:22] LABS: BEDSIDEPREGUCG Negative (Negative)
[2024-11-09 06:26] LABS: Add Urine Microscopic? YES; Appearance Urine Cloudy (Clear); Glucose Urine UA Negative (Negative); Leukocyte Esterase Ur 2+ LEU/UL (Negative); Nitrate Urine Negative (Negative); Specific Grav Ur 1.021 (1.001-1.035)
--- NOTE | 2024-11-09 06:27 | ED.ABDPAIN ---
HPI - Abdominal Pain General Chief Complaint: Abdominal Pain <Samy Robert MD - Last Filed: 11/09/24 19:13> Stated Complaint: R flank pain, RLQ abd pain <Samy Robert MD - Last Filed: 11/09/24 19:13> Time Seen by Provider: 11/09/24 05:41 <Samy Robert MD - Last Filed: 11/09/24 19:13> History of Present Illness HPI narrative: Patient is a 34-year-old female who presents emergency department this evening complaining of right-sided flank pain that started last night and is now radiating to her right lower quadrant. Patient appears uncomfortable and cannot find a good position. States that she has been having urinary urgency and dribbling, denies any dysuria. Unsure of hematuria as she states that she started her menstrual cycle on Wednesday. Denies any history of kidney stones. Patient admits to nausea and she did have 1 vomiting episode in triage. No additional symptoms or concerns at this time. <Samy Robert MD - Last Filed: 11/09/24 19:13> Related Data Allergies/Adverse Reactions: Allergies Allergy/AdvReac Type Severity Reaction Status Date / Time Latex, Natural Rubber AdvReac Intermediate Rash Verified 11/09/24 05:37 <Samy Robert MD - Last Filed: 11/09/24 19:13> Review of Systems Review of Systems: All systems are reviewed and are negative unless stated otherwise in the HPI. <Samy Robert MD - Last Filed: 11/09/24 19:13> PMFSH Past Medical History Medical History: Medical History Adult BMI 39.0-39.9 kg/sq m BMI greater than 40 COVID <Samy Robert MD - Last Filed: 11/09/24 19:13> Surgical History Surgical History: Surgical History History of wisdom tooth extraction (~08/2016) <Samy Robert MD - Last Filed: 11/09/24 19:13> Family History Family History: Family History Mother Depression Father Hypertension Alcohol abuse Grandparent Breast cancer paternal grandmother Heart disease maternal grandfather Malignant tumor of stomach paternal grandfather Grandparent Lung cancer paternal grandfather Pancreatic cancer paternal grandmother Sibling Depression Other Breast cancer paternal aunts x2 <Samy Robert MD - Last Filed: 11/09/24 19:13> Social History Social History: Social History Smoking status: Former smoker Tobacco type: cigarettes Second hand tobacco smoke exposure: Yes Alcohol intake: never Substance use: never Substance use type: does not use Lack of Transportation: No Lack of Food: Never True Current Housing: I Have Housing Concerned About Future Housing: No Difficulty Paying Gas/Electric Bills: No Difficulty Paying for Meds: No Currently Unemployed: No Education: High School Diploma/GED Difficulty w/ Childcare or Family Care: No Living arrangements: with family Additional living arrangements comments: Lives with her . Occupation/Education: occupation Additional occupation/education comments: [employer] Gender identity (if verbalized by the patient): Female Sexual Orientation (if Verbalized by the Patient): Lesbian, Kitchen, or Homosexual Spiritual care concerns: No Agree to blood products: Yes <Samy Robert MD - Last Filed: 11/09/24 19:13> Exam Narrative: General: Alert, awake, afebrile, in moderate distress secondary to pain. HEENT: PERRL, no rhinorrhea, no post nasal drip, oropharynx clear. Neck: Trachea midline, no JVD, no lymphadenopathy. Cardiovascular: Regular rate and rhythm, no murmurs, rubs or gallops, no peripheral edema. Respiratory: Clear to auscultation bilaterally, no tachypnea, no wheezing, no rhonchi, no rubs, no respiratory distress. Abdomen: Soft, nontender, nondistended, no rebound, no guarding, no peritoneal signs. Musculoskeletal: No joint swelling or deformity, normal muscle tone. Skin: No rashes or petechia, no signs of infection. Psychiatric: Alert and oriented, normal behavior and judgment for situation. Neurological: Alert and oriented to person, place, and time. Follows all commands. No focal deficits, speech is clear and fluent. <Samy Robert MD - Last Filed: 11/09/24 19:13> Course Vital Signs Vital signs: Vital Signs Pulse Rate 76 11/09/24 05:46 Respiratory Rate 13 11/09/24 05:46 Blood Pressure 146/99 H 11/09/24 05:46 Pulse Oximetry 99 11/09/24 05:46 Pulse Rate 51 L 11/09/24 07:21 Respiratory Rate 17 11/09/24 07:21 Blood Pressure 139/73 11/09/24 07:21 Pulse Oximetry 100 11/09/24 07:21 <Samy Robert MD - Last Filed: 11/09/24 19:13> Vital Signs Pulse Rate 76 11/09/24 05:46 Respiratory Rate 13 11/09/24 05:46 Blood Pressure 146/99 H 11/09/24 05:46 Pulse Oximetry 99 11/09/24 05:46 Pulse Rate 51 L 11/09/24 07:21 Respiratory Rate 17 11/09/24 07:21 Blood Pressure 139/73 11/09/24 07:21 Pulse Oximetry 100 11/09/24 07:21 <Shayla Hernadez III, DO - Last Filed: 11/09/24 07:22> MDM - Abdominal Pain MDM Narrative Medical decision making narrative: The patient was evaluated by myself in the emergency department. History is obtained from patient who is an independent historian and physical exam was performed. External medical records were reviewed at this time. IV was established and pertinent tests were ordered. Patient was administered 1 L IV fluid bolus with normal saline, 50 mg of IV Toradol for pain and 4 mg of IV Zofran for nausea. Laboratory results obtained revealing a leukocytosis of 13.1, otherwise unremarkable. Imaging studies obtained included CT abdomen pelvis with IV contrast which is currently pending. Differential diagnosis considerations include kidney stones, pyelonephritis, appendicitis. Comorbidities impacting this visit include none. <Samy Robert MD - Last Filed: 11/09/24 19:13> The patient was evaluated by myself in the emergency department. History is obtained from patient who is an independent historian and physical exam was performed. External medical records were reviewed at this time. IV was established and pertinent tests were ordered. Patient was administered 1 L IV fluid bolus with normal saline, 50 mg of IV Toradol for pain and 4 mg of IV Zofran for nausea. Laboratory results obtained revealing a leukocytosis of 13.1, otherwise unremarkable. Imaging studies obtained included CT abdomen pelvis with IV contrast which is currently pending. Differential diagnosis considerations include kidney stones, pyelonephritis, appendicitis. Comorbidities impacting this visit include none. Assumed care at 0700. Pt has 3 mm stone at [facility] with mild hydro. Pt comfortable now. willsend home on flmax, norco and zofran with urology follow up. <Shayla Hernadez III, DO - Last Filed: 11/09/24 07:22> Lab Data Result diagrams: 11/09/24 05:49 11/09/24 05:49 <Samy Robert MD - Last Filed: 11/09/24 19:13> Labs: Lab Results 11/09/24 11/09/24 11/09/24 Range/Units 05:49 05:49 06:07 WBC 13.1 H (4.5-10.0) K/mm3 RBC 4.95 (4.2-5.4) M/mm3 Hgb 14.0 (12.0-15.0) g/dL Hct 43.3 (37.0-47.0) % MCV 87.5 (80-100) fl MCH 28.3 (26-34) pg MCHC 32.3 (32-36) g/dl RDW 13.2 (11.5-14.5) % Plt Count 318 (150-375) k/mm3 MPV 9.3 (7.4-10.4) fl Immature Gran % (Auto) 0.5 (0-0.5) % Neut % (Auto) 58.7 (45.5-73.1) % Lymph % (Auto) 32.6 (18.3-44.2) % [place] % (Auto) 6.6 (2.6-8.5) % Eos % (Auto) 0.9 (0-4.4) % Baso % (Auto) 0.7 (0.2-1.2) % Lymph # (Auto) 4.28 H (0.9-3.2) K/mm3 [place] # (Auto) 0.9 H (0.1-0.6) K/mm3 Eos # (Auto) 0.1 (0-0.3) K/mm3 Baso # (Auto) 0.1 (0.0-0.1) K/mm3 Abs Immat Gran (auto) 0.06 H (0.00-0.031) K/mm3 Absolute Neuts (auto) 7.7 H (1.3-6.7) K/mm3 Absolute Nucleated RBC 0.000 (0.0-0.012) K/mm3 Nucleated RBC % 0.0 (0.0-0.2) % Sodium 138 (137-145) mmol/L Potassium 3.4 (3.4-5.0) mmol/L Chloride 105 (98-107) mmol/L Carbon Dioxide 20 L (22-30) mmol/L Anion Gap 13 H (4-12) mmol/L BUN 15 (7-17) mg/dL Creatinine 1.07 H (0.7-1.0) mg/dL Estim Creat Clear Calc 82 ml/min Estimated GFR 59 (59 - ) Glucose 133 H (65-110) mg/dL Calcium 9.1 (8.4-10.2) mg/dL Magnesium 2.0 Cancelled (1.6-2.3) mg/dL Total Bilirubin 0.5 (0.2-1.3) mg/dL AST 31 (14-36) U/L ALT 32 (6-35) U/L Alkaline Phosphatase 82 (38-126) U/L Total Protein 7.7 (6.3-8.2) g/dL Albumin 4.1 (3.5-5.1) g/dL Lipase 101 (23-300) U/L Serum HCG, Qual Negative Urine Color Yellow (Yellow) Urine Appearance Cloudy H (Clear) Urine pH 5.5 (5.0-9.0) Ur Specific [place] 1.021 (1.001-1.035) Urine Protein 1+ H (Negative) mg/dL Urine Glucose (UA) Negative (Negative) mg/dL Urine Ketones Negative (Negative) mg/dL Ur Blood (Man) 3+ H (Negative) Urine Nitrate Negative (Negative) Urine Bilirubin Negative (Negative) Urine Urobilinogen 0.2 (<2.0) mg/dL Leukocyte Esterase Rfl 2+ H (Negative) EMILI/UL Urine RBC >100 H (0-2) /hpf Urine WBC 6-10 H (0-3) /hpf Ur Squamous Epith Cells Moderate H (Few) /hpf Urine Bacteria Trace /hpf POC Urine HCG, Qual (Negative) 11/09/24 Range/Units 06:20 WBC (4.5-10.0) K/mm3 RBC (4.2-5.4) M/mm3 Hgb (12.0-15.0) g/dL Hct (37.0-47.0) % MCV (80-100) fl MCH (26-34) pg MCHC (32-36) g/dl RDW (11.5-14.5) % Plt Count (150-375) k/mm3 MPV (7.4-10.4) fl Immature Gran % (Auto) (0-0.5) % Neut % (Auto) (45.5-73.1) % Lymph % (Auto) (18.3-44.2) % [place] % (Auto) (2.6-8.5) % Eos % (Auto) (0-4.4) % Baso % (Auto) (0.2-1.2) % Lymph # (Auto) (0.9-3.2) K/mm3 [place] # (Auto) (0.1-0.6) K/mm3 Eos # (Auto) (0-0.3) K/mm3 Baso # (Auto) (0.0-0.1) K/mm3 Abs Immat Gran (auto) (0.00-0.031) K/mm3 Absolute Neuts (auto) (1.3-6.7) K/mm3 Absolute Nucleated RBC (0.0-0.012) K/mm3 Nucleated RBC % (0.0-0.2) % Sodium (137-145) mmol/L Potassium (3.4-5.0) mmol/L Chloride (98-107) mmol/L Carbon Dioxide (22-30) mmol/L Anion Gap (4-12) mmol/L BUN (7-17) mg/dL Creatinine (0.7-1.0) mg/dL Estim Creat Clear Calc ml/min Estimated GFR (59 - ) Glucose (65-110) mg/dL Calcium (8.4-10.2) mg/dL Magnesium (1.6-2.3) mg/dL Total Bilirubin (0.2-1.3) mg/dL AST (14-36) U/L ALT (6-35) U/L Alkaline Phosphatase (38-126) U/L Total Protein (6.3-8.2) g/dL Albumin (3.5-5.1) g/dL Lipase (23-300) U/L Serum HCG, Qual Urine Color (Yellow) Urine Appearance (Clear) Urine pH (5.0-9.0) Ur Specific [place] (1.001-1.035) Urine Protein (Negative) mg/dL Urine Glucose (UA) (Negative) mg/dL Urine Ketones (Negative) mg/dL Ur Blood (Man) (Negative) Urine Nitrate (Negative) Urine Bilirubin (Negative) Urine Urobilinogen (<2.0) mg/dL Leukocyte Esterase Rfl (Negative) EMILI/UL Urine RBC (0-2) /hpf Urine WBC (0-3) /hpf Ur Squamous Epith Cells (Few) /hpf Urine Bacteria /hpf POC Urine HCG, Qual Negative (Negative) <Samy Robert MD - Last Filed: 11/09/24 19:13> Lab Results 11/09/24 11/09/24 11/09/24 Range/Units 05:49 05:49 06:07 WBC 13.1 H (4.5-10.0) K/mm3 RBC 4.95 (4.2-5.4) M/mm3 Hgb 14.0 (12.0-15.0) g/dL Hct 43.3 (37.0-47.0) % MCV 87.5 (80-100) fl MCH 28.3 (26-34) pg MCHC 32.3 (32-36) g/dl RDW 13.2 (11.5-14.5) % Plt Count 318 (150-375) k/mm3 MPV 9.3 (7.4-10.4) fl Immature Gran % (Auto) 0.5 (0-0.5) % Neut % (Auto) 58.7 (45.5-73.1) % Lymph % (Auto) 32.6 (18.3-44.2) % [place] % (Auto) 6.6 (2.6-8.5) % Eos % (Auto) 0.9 (0-4.4) % Baso % (Auto) 0.7 (0.2-1.2) % Lymph # (Auto) 4.28 H (0.9-3.2) K/mm3 [place] # (Auto) 0.9 H (0.1-0.6) K/mm3 Eos # (Auto) 0.1 (0-0.3) K/mm3 Baso # (Auto) 0.1 (0.0-0.1) K/mm3 Abs Immat Gran (auto) 0.06 H (0.00-0.031) K/mm3 Absolute Neuts (auto) 7.7 H (1.3-6.7) K/mm3 Absolute Nucleated RBC 0.000 (0.0-0.012) K/mm3 Nucleated RBC % 0.0 (0.0-0.2) % Sodium 138 (137-145) mmol/L Potassium 3.4 (3.4-5.0) mmol/L Chloride 105 (98-107) mmol/L Carbon Dioxide 20 L (22-30) mmol/L Anion Gap 13 H (4-12) mmol/L BUN 15 (7-17) mg/dL Creatinine 1.07 H (0.7-1.0) mg/dL Estim Creat Clear Calc 82 ml/min Estimated GFR 59 (59 - ) Glucose 133 H (65-110) mg/dL Calcium 9.1 (8.4-10.2) mg/dL Magnesium 2.0 Cancelled (1.6-2.3) mg/dL Total Bilirubin 0.5 (0.2-1.3) mg/dL AST 31 (14-36) U/L ALT 32 (6-35) U/L Alkaline Phosphatase 82 (38-126) U/L Total Protein 7.7 (6.3-8.2) g/dL Albumin 4.1 (3.5-5.1) g/dL Lipase 101 (23-300) U/L Serum HCG, Qual Negative Urine Color Yellow (Yellow) Urine Appearance Cloudy H (Clear) Urine pH 5.5 (5.0-9.0) Ur Specific [place] 1.021 (1.001-1.035) Urine Protein 1+ H (Negative) mg/dL Urine Glucose (UA) Negative (Negative) mg/dL Urine Ketones Negative (Negative) mg/dL Ur Blood (Man) 3+ H (Negative) Urine Nitrate Negative (Negative) Urine Bilirubin Negative (Negative) Urine Urobilinogen 0.2 (<2.0) mg/dL Leukocyte Esterase Rfl 2+ H (Negative) EMILI/UL Urine RBC >100 H (0-2) /hpf Urine WBC 6-10 H (0-3) /hpf Ur Squamous Epith Cells Moderate H (Few) /hpf Urine Bacteria Trace /hpf POC Urine HCG, Qual (Negative) 11/09/24 Range/Units 06:20 WBC (4.5-10.0) K/mm3 RBC (4.2-5.4) M/mm3 Hgb (12.0-15.0) g/dL Hct (37.0-47.0) % MCV (80-100) fl MCH (26-34) pg MCHC (32-36) g/dl RDW (11.5-14.5) % Plt Count (150-375) k/mm3 MPV (7.4-10.4) fl Immature Gran % (Auto) (0-0.5) % Neut % (Auto) (45.5-73.1) % Lymph % (Auto) (18.3-44.2) % [place] % (Auto) (2.6-8.5) % Eos % (Auto) (0-4.4) % Baso % (Auto) (0.2-1.2) % Lymph # (Auto) (0.9-3.2) K/mm3 [place] # (Auto) (0.1-0.6) K/mm3 Eos # (Auto) (0-0.3) K/mm3 Baso # (Auto) (0.0-0.1) K/mm3 Abs Immat Gran (auto) (0.00-0.031) K/mm3 Absolute Neuts (auto) (1.3-6.7) K/mm3 Absolute Nucleated RBC (0.0-0.012) K/mm3 Nucleated RBC % (0.0-0.2) % Sodium (137-145) mmol/L Potassium (3.4-5.0) mmol/L Chloride (98-107) mmol/L Carbon Dioxide (22-30) mmol/L Anion Gap (4-12) mmol/L BUN (7-17) mg/dL Creatinine (0.7-1.0) mg/dL Estim Creat Clear Calc ml/min Estimated GFR (59 - ) Glucose (65-110) mg/dL Calcium (8.4-10.2) mg/dL Magnesium (1.6-2.3) mg/dL Total Bilirubin (0.2-1.3) mg/dL AST (14-36) U/L ALT (6-35) U/L Alkaline Phosphatase (38-126) U/L Total Protein (6.3-8.2) g/dL Albumin (3.5-5.1) g/dL Lipase (23-300) U/L Serum HCG, Qual Urine Color (Yellow) Urine Appearance (Clear) Urine pH (5.0-9.0) Ur Specific [place] (1.001-1.035) Urine Protein (Negative) mg/dL Urine Glucose (UA) (Negative) mg/dL Urine Ketones (Negative) mg/dL Ur Blood (Man) (Negative) Urine Nitrate (Negative) Urine Bilirubin (Negative) Urine Urobilinogen (<2.0) mg/dL Leukocyte Esterase Rfl (Negative) EMILI/UL Urine RBC (0-2) /hpf Urine WBC (0-3) /hpf Ur Squamous Epith Cells (Few) /hpf Urine Bacteria /hpf POC Urine HCG, Qual Negative (Negative) <Shayla Hernadez III, DO - Last Filed: 11/09/24 07:22> Imaging Data Radiologist's impression: ITS Impressions Abdomen/Pelvis CT 11/09/24 07:08 Impression: 3 mm right UVJ stone, with mild right hydroureteronephrosis. Diffuse hepatic steatosis. <Samy Robert MD - Last Filed: 11/09/24 19:13> ITS Impressions Abdomen/Pelvis CT 11/09/24 07:08 Impression: 3 mm right UVJ stone, with mild right hydroureteronephrosis. Diffuse hepatic steatosis. <Shayla Hernadez III, DO - Last Filed: 11/09/24 07:22> Discharge Plan Discharge Clinical Impression: Ureterolithiasis <Samy Robert MD - Last Filed: 11/09/24 19:13> Patient Disposition: Home <Samy Robert MD - Last Filed: 11/09/24 19:13> Condition: Improved <Samy Robert MD - Last Filed: 11/09/24 19:13> Instructions: Antibiotic Form, Kidney Stones (ED) <Samy Robert MD - Last Filed: 11/09/24 19:13> Patient Language: Stateless <Samy Robert MD - Last Filed: 11/09/24 19:13> Prescriptions: New tamsulosin [Flomax] 0.4 mg capsule 0.4 mg PO DAILY Qty: 10 0RF ondansetron 4 mg tablet,disintegrating 4 mg PO Q8H PRN (Reason: nausea and vomiting) Qty: 14 0RF hydrocodone-acetaminophen 5-325 mg tablet 1 tablet PO Q6H PRN (Reason: pain) Qty: 14 0RF <Samy Robert MD - Last Filed: 11/09/24 19:13> Follow-up/Referrals: PHYSICIAN,[employer] [Primary Care Provider] - Shon Chiu MD [Physician] - <Samy Robert MD - Last Filed: 11/09/24 19:13>
[2024-11-09] MEDS: SODIUM CHLORIDE 0.9% IV 1,000 ML 999 ML IV CONT (06:40)
[2024-11-09] MEDS: KETOROLAC 15 MG/ML VIAL (*BKC) IV PUSH (06:40)
[2024-11-09] MEDS: ONDANSETRON INJ 4 MG/2 ML VIAL IV PUSH (06:40)
[2024-11-09 06:56] LABS: SPREG INTERNAL CONTROL Positive; Serum Qual hCG Negative
--- NOTE | 2024-11-09 07:15 | PC.NURSE ---
Bedside report given to ADAM Steinberg. No questions at this time. [id number]
[2024-11-09 07:21] VITALS: BP 139/73; PULSE 51; RESP 17; O2SAT 100
== END 2024-11-09 07:31 | disposition home or self-care (01) ==
PROVIDERS: Emergency Medicine; Emergency Provider Emergency Medicine
DX: N13.2 Hydronephrosis with renal and ureteral calculous obstruction (principal)
CPT/HCPCS: 36415; 74177; 80053; 81001; 81025; 83690; 83735; 84703; 85025; 96361; 96374; 96375; 99284; J1885; J2405; J7030; Q9967